=== PATIENT | female | born 1935 | race Caucasian/White ===

== ENCOUNTER 2024-04-06 21:35 | Inpatient (IN) | payer MEDICARE ==
[2024-04-06 22:40] LABS: #Basophils 0.04 10x3/uL (0.0-0.2); #Eosinophils 0.03 10x3/uL (0.0-0.5); #Monocytes 0.62 10x3/uL (0.0-1.1); #Neutrophils 7.62 10x3/uL (1.5-8.4); %Basophils 0.4 % (0.0-2.0); %Eosinophils 0.3 % (0.0-6.0); %Lymphocytes 10.7 % (18.0-47.0); %Monocytes 6.5 % (0.0-10.0); %Neutrophils 80.4 % (40.0-75.0); Hematocrit 24.5 % (34.9-44.5); Hemoglobin 7.9 g/dL (12.0-15.5); Mean Corpuscular HGB CONC 32.2 g/dL (32.0-36.0); Mean Corpuscular Hemoglobin 29.4 pg (27.0-33.0); Mean Corpuscular Volume 91.1 fL (81.6-98.3); Platelet Count 196 10x3/uL (150-450); RBC Distribution Width 18.1 % (11.5-14.5); Red Blood Cell (RBC) Count 2.69 10x6/uL (3.90-5.03); White Blood Cell (WBC) Count 9.48 10x3/uL (3.5-10.5)
[2024-04-06 22:54] LABS: ALT (SGPT) 64 U/L (8-55); AST (SGOT) 45 U/L (5-34); Albumin 3.4 g/dL (3.4-4.8); Alkaline Phosphatase 57 U/L (40-110); Anion Gap 13 mmol/L (10-20); BUN (Urea Nitrogen) 41 mg/dL (9.8-20.1); Bilirubin, Total 0.4 mg/dL (0.2-1.2); Calc. Creatinine Clearance 0 mL/min (70-130); Calcium 8.7 mg/dL (7.8-10.44); Carbon Dioxide 21 mmol/L (23-31); Chloride 108 mmol/L (98-107); Estimated GFR 66; Globulin 3.1 g/dL (2.4-3.5); Glucose 135 mg/dL (83-110); Potassium 3.7 mmol/L (3.5-5.1); Protein, Total 6.5 g/dL (5.8-8.1); Sodium 138 mmol/L (136-145)
[2024-04-06 23:02] LABS: INR-International Normal Ratio 1.1; Prothrombin Time 11.6 sec (9.5-12.1)
[2024-04-06] MEDS ORDERED: traMADol HCl 50 MG TAB PO PRN (23:41)
[2024-04-06] MEDS ORDERED: Acetaminophen 325 MG TAB PO PRN (23:41)
[2024-04-06] MEDS ORDERED: Ondansetron PF 4 MG/2 ML Vial IVP PRN (23:41)
[2024-04-07 01:13] VITALS: BMI 16.7
[2024-04-07 04:18] LABS: #Basophils 0.03 10x3/uL (0.0-0.2); #Eosinophils 0.05 10x3/uL (0.0-0.5); #Monocytes 0.57 10x3/uL (0.0-1.1); #Neutrophils 4.64 10x3/uL (1.5-8.4); %Basophils 0.5 % (0.0-2.0); %Eosinophils 0.8 % (0.0-6.0); %Lymphocytes 15.1 % (18.0-47.0); %Monocytes 9.1 % (0.0-10.0); %Neutrophils 73.7 % (40.0-75.0); Hematocrit 20.4 % (34.9-44.5); Hemoglobin 6.8 g/dL (12.0-15.5); Mean Corpuscular HGB CONC 33.3 g/dL (32.0-36.0); Mean Corpuscular Volume 89.9 fL (81.6-98.3); Platelet Count 178 10x3/uL (150-450); RBC Distribution Width 18.2 % (11.5-14.5); Red Blood Cell (RBC) Count 2.27 10x6/uL (3.90-5.03); White Blood Cell (WBC) Count 6.29 10x3/uL (3.5-10.5)
[2024-04-07 04:36] LABS: Anion Gap 13 mmol/L (10-20); BUN (Urea Nitrogen) 31 mg/dL (9.8-20.1); Calc. Creatinine Clearance 41 mL/min (70-130); Calcium 8.3 mg/dL (7.8-10.44); Carbon Dioxide 21 mmol/L (23-31); Chloride 110 mmol/L (98-107); Estimated GFR 84; Glucose 103 mg/dL (83-110); Potassium 3.7 mmol/L (3.5-5.1); Sodium 140 mmol/L (136-145)
[2024-04-07 05:38] LABS: Hemoglobin 6.5 g/dL (12.0-15.5)
[2024-04-07] MEDS: FLU (Fluad Triv) TS24-25 (65UP)/MF59C/PF 45 MCG/0.5 ML Syringe IM ONE (05:42)
[2024-04-07] MEDS ORDERED: Losartan 25 MG TAB PO SCH (09:00)
[2024-04-07] MEDS: Lactated Ringer's 1,000 ML IV SCH (09:14)
[2024-04-07] MEDS: Atorvastatin Calcium 40 MG TAB PO SCH (09:14)
[2024-04-07] MEDS: Pantoprazole 40 MG VIAL IVP SCH (09:14)
[2024-04-07] MEDS: Metoprolol Tartrate 50 MG TAB PO SCH (09:14)
[2024-04-07] MEDS: Amiodarone 200 MG TAB PO SCH (09:15)
[2024-04-07 09:59] VITALS: BMI 16.7
[2024-04-07] MEDS ORDERED: Pantoprazole 80 MG, Admixture Fee 1 EACH in Sodium Chloride 0.9% 100 ML IVPB SCH (10:00)
[2024-04-07 13:33] VITALS: BP 117/57; TEMP 98.5
== END 2024-04-07 13:30 | disposition home or self-care (01) | DRG 378 ==
LOC: CSHERS 21:35 → CSHTELE 23:45
PROVIDERS: ADMIT Internal Medicine; ATTEND Internal Medicine
PROC: 30233N1 Transfusion of Nonautologous Red Blood Cells into Peripheral Vein, Percutaneous Approach (ICD-10-PCS; principal; 2024-04-07)
DX: K92.2 Gastrointestinal hemorrhage, unspecified (principal); D62 Acute posthemorrhagic anemia; E44.0 Moderate protein-calorie malnutrition; Z68.1 Body mass index [BMI] 19.9 or less, adult; I48.91 Unspecified atrial fibrillation; I10 Essential (primary) hypertension; E78.5 Hyperlipidemia, unspecified; I25.10 Atherosclerotic heart disease of native coronary artery without angina pectoris; K21.9 Gastro-esophageal reflux disease without esophagitis; M19.90 Unspecified osteoarthritis, unspecified site; H40.9 Unspecified glaucoma; Z92.3 Personal history of irradiation; Z86.73 Personal history of transient ischemic attack (TIA), and cerebral infarction without residual deficits; Z85.3 Personal history of malignant neoplasm of breast; Z98.42 Cataract extraction status, left eye; Z98.41 Cataract extraction status, right eye
CPT/HCPCS: 36430; 80048; 80053; 85025; 85610; 86850; 86900; 86901; 99283; J2470; J7120; P9016

== ENCOUNTER 2025-02-20 10:23 | Emergency (ER) | payer MEDICARE ==
[2025-02-20] MEDS ORDERED: dilTIAZem 25 MG/5 ML VIAL ONE (11:32)
[2025-02-20 11:45] LABS: #Basophils 0.04 10x3/uL (0.0-0.2); #Eosinophils 0.05 10x3/uL (0.0-0.5); #Monocytes 0.46 10x3/uL (0.0-1.1); #Neutrophils 3.30 10x3/uL (1.5-8.4); %Basophils 0.8 % (0.0-2.0); %Eosinophils 1.0 % (0.0-6.0); %Lymphocytes 21.7 % (18.0-47.0); %Monocytes 9.3 % (0.0-10.0); %Neutrophils 66.8 % (40.0-75.0); Hematocrit 32.6 % (34.9-44.5); Hemoglobin 10.9 g/dL (12.0-15.5); Mean Corpuscular Hemoglobin 29.1 pg (27.0-33.0); Mean Corpuscular Volume 87.2 fL (81.6-98.3); Platelet Count 241 10x3/uL (150-450); Red Blood Cell (RBC) Count 3.74 10x6/uL (3.90-5.03); White Blood Cell (WBC) Count 4.94 10x3/uL (3.5-10.5)
[2025-02-20 12:02] LABS: ALT (SGPT) 17 U/L (Less than 34); AST (SGOT) 26 U/L (11-34); Albumin 3.6 g/dL (3.1-4.5); Alkaline Phosphatase 69 U/L (40-110); Anion Gap 14 mmol/L (10-20); BUN (Urea Nitrogen) 36 mg/dL (9.8-20.1); Bilirubin, Total 0.5 mg/dL (0.3-1.2); Calc. Creatinine Clearance 0 mL/min (70-130); Calcium 9.2 mg/dL (7.8-10.44); Carbon Dioxide 22 mmol/L (23-31); Chloride 109 mmol/L (98-107); Globulin 3.1 g/dL (2.4-3.5); Glucose 123 mg/dL (83-110); Magnesium 2.1 mg/dL (1.6-2.6); Potassium 4.3 mmol/L (3.5-5.1); Sodium 141 mmol/L (136-145)
[2025-02-20 12:10] LABS: Troponin I 0.252 ng/mL (< 0.028)
[2025-02-20 13:38] LABS: Glucose, Urine (Dipstick) Normal (Negative); Leukocyte Negative (Negative); Protein, Urine (Dipstick) 30 mg/dl (Neg-Trace); Specific Gravity, Urine 1.020 (1.005-1.030)
[2025-02-20 13:46] LABS: Bacteria/HPF 1+ HPF (None Seen); CAUTI Indications for Culture Pelvic or flank pain; RBC/HPF 0-3 HPF (0-3); WBC/HPF 0-3 HPF (0-3)
[2025-02-20 13:47] LABS: Urine Culture Reflex No No
== END 2025-02-20 14:42 | disposition home or self-care (01) ==
LOC: CSHERS 10:23
DX: I48.91 Unspecified atrial fibrillation (principal); I10 Essential (primary) hypertension; Z86.73 Personal history of transient ischemic attack (TIA), and cerebral infarction without residual deficits
CPT/HCPCS: 71045; 80053; 81001; 83735; 83880; 84484; 85025; 87428; 93005; 96374

== ENCOUNTER 2025-02-21 10:25 | Inpatient (IN) | payer MEDICARE ==
[2025-02-21 10:56] LABS: #Basophils 0.06 10x3/uL (0.0-0.2); #Eosinophils 0.06 10x3/uL (0.0-0.5); #Monocytes 0.63 10x3/uL (0.0-1.1); #Neutrophils 4.39 10x3/uL (1.5-8.4); %Basophils 0.9 % (0.0-2.0); %Eosinophils 0.9 % (0.0-6.0); %Lymphocytes 18.7 % (18.0-47.0); %Monocytes 9.9 % (0.0-10.0); %Neutrophils 69.1 % (40.0-75.0); Hematocrit 35.6 % (34.9-44.5); Hemoglobin 11.8 g/dL (12.0-15.5); Mean Corpuscular Hemoglobin 29.2 pg (27.0-33.0); Mean Corpuscular Volume 88.1 fL (81.6-98.3); Platelet Count 267 10x3/uL (150-450); Red Blood Cell (RBC) Count 4.04 10x6/uL (3.90-5.03); White Blood Cell (WBC) Count 6.36 10x3/uL (3.5-10.5)
[2025-02-21] MEDS ORDERED: dilTIAZem 25 MG/5 ML VIAL ONE (10:56)
[2025-02-21] MEDS ORDERED: Amiodarone 200 MG TAB ONE (10:56)
[2025-02-21 11:04] LABS: ALT (SGPT) 20 U/L (Less than 34); AST (SGOT) 32 U/L (11-34); Albumin 3.8 g/dL (3.1-4.5); Alkaline Phosphatase 79 U/L (40-110); Anion Gap 15 mmol/L (10-20); BUN (Urea Nitrogen) 35 mg/dL (9.8-20.1); Bilirubin, Total 0.5 mg/dL (0.3-1.2); Calc. Creatinine Clearance 0 mL/min (70-130); Calcium 9.0 mg/dL (7.8-10.44); Carbon Dioxide 20 mmol/L (23-31); Chloride 109 mmol/L (98-107); Globulin 3.2 g/dL (2.4-3.5); Glucose 126 mg/dL (83-110); Magnesium 2.2 mg/dL (1.6-2.6); Potassium 4.4 mmol/L (3.5-5.1); Sodium 140 mmol/L (136-145)
[2025-02-21 11:09] LABS: Troponin I 0.177 ng/mL (< 0.028)
[2025-02-21] MEDS ORDERED: Senokot S 8.6-50 MG TAB PO PRN (13:44)
[2025-02-21] MEDS ORDERED: Melatonin 3 MG TAB PO PRN (13:44)
[2025-02-21] MEDS ORDERED: Acetaminophen 325 MG TAB PO PRN (13:44)
[2025-02-21 14:52] VITALS: BMI 17.3
[2025-02-21 18:57] LABS: Troponin I 0.145 ng/mL (< 0.028)
[2025-02-21] MEDS: Amiodarone 200 MG TAB PO SCH (20:39)
[2025-02-22 00:28] LABS: Troponin I 0.133 ng/mL (< 0.028)
[2025-02-22 05:05] LABS: #Basophils 0.05 10x3/uL (0.0-0.2); #Eosinophils 0.06 10x3/uL (0.0-0.5); #Monocytes 0.67 10x3/uL (0.0-1.1); #Neutrophils 6.07 10x3/uL (1.5-8.4); %Basophils 0.6 % (0.0-2.0); %Eosinophils 0.8 % (0.0-6.0); %Lymphocytes 11.3 % (18.0-47.0); %Monocytes 8.6 % (0.0-10.0); %Neutrophils 77.8 % (40.0-75.0); Hematocrit 33.1 % (34.9-44.5); Hemoglobin 10.9 g/dL (12.0-15.5); Mean Corpuscular Hemoglobin 28.5 pg (27.0-33.0); Mean Corpuscular Volume 86.6 fL (81.6-98.3); Platelet Count 251 10x3/uL (150-450); Red Blood Cell (RBC) Count 3.82 10x6/uL (3.90-5.03); White Blood Cell (WBC) Count 7.80 10x3/uL (3.5-10.5)
[2025-02-22 05:19] LABS: Anion Gap 15 mmol/L (10-20); BUN (Urea Nitrogen) 27 mg/dL (9.8-20.1); Calc. Creatinine Clearance 40 mL/min (70-130); Calcium 8.6 mg/dL (7.8-10.44); Carbon Dioxide 20 mmol/L (23-31); Chloride 106 mmol/L (98-107); Glucose 127 mg/dL (83-110); Potassium 3.5 mmol/L (3.5-5.1); Sodium 137 mmol/L (136-145)
[2025-02-22] MEDS: Aspirin 81 mg Enteric Coated Tablet PO SCH (11:24)
[2025-02-22] MEDS: Metoprolol Succinate XL 50 MG ER.TAB PO SCH (12:22)
[2025-02-22 20:03] LABS: T4 7.91 ug/dL (4.87-11.72)
[2025-02-22] MEDS: FLU (Fluad Triv) 25-26 (65UP)PF 45 MCG/0.5 ML Syringe IM ONE (20:10)
[2025-02-22] MEDS: Famotidine 20 MG TAB PO SCH (21:04)
[2025-02-23 05:06] LABS: #Basophils 0.03 10x3/uL (0.0-0.2); #Eosinophils 0.09 10x3/uL (0.0-0.5); #Monocytes 1.01 10x3/uL (0.0-1.1); #Neutrophils 6.21 10x3/uL (1.5-8.4); %Basophils 0.3 % (0.0-2.0); %Eosinophils 1.0 % (0.0-6.0); %Lymphocytes 15.6 % (18.0-47.0); %Monocytes 11.5 % (0.0-10.0); %Neutrophils 71.0 % (40.0-75.0); Hematocrit 33.4 % (34.9-44.5); Hemoglobin 11.2 g/dL (12.0-15.5); Mean Corpuscular Hemoglobin 29.1 pg (27.0-33.0); Mean Corpuscular Volume 86.8 fL (81.6-98.3); Platelet Count 257 10x3/uL (150-450); Red Blood Cell (RBC) Count 3.85 10x6/uL (3.90-5.03); White Blood Cell (WBC) Count 8.76 10x3/uL (3.5-10.5)
[2025-02-23 05:18] LABS: Anion Gap 12 mmol/L (10-20); BUN (Urea Nitrogen) 29 mg/dL (9.8-20.1); Calc. Creatinine Clearance 31 mL/min (70-130); Calcium 8.8 mg/dL (7.8-10.44); Carbon Dioxide 21 mmol/L (23-31); Chloride 107 mmol/L (98-107); Glucose 113 mg/dL (83-110); Potassium 4.4 mmol/L (3.5-5.1); Sodium 136 mmol/L (136-145)
[2025-02-23] MEDS ORDERED: Aspirin 81 mg Enteric Coated Tablet PO SCH (09:00)
[2025-02-23] MEDS: Famotidine 20 MG TAB PO SCH (20:17)
[2025-02-24 07:36] LABS: #Basophils 0.06 10x3/uL (0.0-0.2); #Eosinophils 0.15 10x3/uL (0.0-0.5); #Monocytes 1.11 10x3/uL (0.0-1.1); #Neutrophils 7.58 10x3/uL (1.5-8.4); %Basophils 0.6 % (0.0-2.0); %Eosinophils 1.4 % (0.0-6.0); %Lymphocytes 13.6 % (18.0-47.0); %Monocytes 10.7 % (0.0-10.0); %Neutrophils 72.8 % (40.0-75.0); Hematocrit 34.9 % (34.9-44.5); Hemoglobin 11.3 g/dL (12.0-15.5); Mean Corpuscular Hemoglobin 29.0 pg (27.0-33.0); Mean Corpuscular Volume 89.7 fL (81.6-98.3); Platelet Count 292 10x3/uL (150-450); Red Blood Cell (RBC) Count 3.89 10x6/uL (3.90-5.03); White Blood Cell (WBC) Count 10.40 10x3/uL (3.5-10.5)
[2025-02-24 08:06] LABS: Anion Gap 13 mmol/L (10-20); BUN (Urea Nitrogen) 32 mg/dL (9.8-20.1); Calc. Creatinine Clearance 29 mL/min (70-130); Calcium 9.3 mg/dL (7.8-10.44); Carbon Dioxide 22 mmol/L (23-31); Chloride 105 mmol/L (98-107); Glucose 138 mg/dL (83-110); Potassium 4.1 mmol/L (3.5-5.1); Sodium 136 mmol/L (136-145)
[2025-02-24] MEDS: Losartan 25 MG TAB PO SCH (12:42)
[2025-02-24] MEDS: Bacitracin 1 PK TOP PRN (16:13)
[2025-02-25 06:03] VITALS: TEMP 98
[2025-02-25 06:19] LABS: #Basophils 0.04 10x3/uL (0.0-0.2); #Eosinophils 0.09 10x3/uL (0.0-0.5); #Monocytes 0.89 10x3/uL (0.0-1.1); #Neutrophils 6.89 10x3/uL (1.5-8.4); %Basophils 0.4 % (0.0-2.0); %Eosinophils 1.0 % (0.0-6.0); %Lymphocytes 11.4 % (18.0-47.0); %Monocytes 9.9 % (0.0-10.0); %Neutrophils 76.7 % (40.0-75.0); Hematocrit 34.5 % (34.9-44.5); Hemoglobin 11.2 g/dL (12.0-15.5); Mean Corpuscular Hemoglobin 28.6 pg (27.0-33.0); Mean Corpuscular Volume 88.2 fL (81.6-98.3); Platelet Count 282 10x3/uL (150-450); Red Blood Cell (RBC) Count 3.91 10x6/uL (3.90-5.03); White Blood Cell (WBC) Count 8.98 10x3/uL (3.5-10.5)
[2025-02-25 06:37] LABS: Anion Gap 15 mmol/L (10-20); BUN (Urea Nitrogen) 31 mg/dL (9.8-20.1); Calc. Creatinine Clearance 32 mL/min (70-130); Calcium 9.1 mg/dL (7.8-10.44); Carbon Dioxide 21 mmol/L (23-31); Chloride 107 mmol/L (98-107); Glucose 117 mg/dL (83-110); Potassium 3.9 mmol/L (3.5-5.1); Sodium 139 mmol/L (136-145)
[2025-02-25] MEDS: Losartan 25 MG TAB PO SCH ×2 (09:14→11:21)
[2025-02-25 12:23] VITALS: BP 139/73
[2025-02-26] MEDS ORDERED: Losartan 50 MG TAB PO SCH (09:00)
== END 2025-02-25 15:30 | disposition home health service (06) | DRG 281 ==
LOC: CSHERS 10:25 → CSHTELE 13:09
PROVIDERS: ADMIT Internal Medicine; ATTEND Hospitalist
DX: I48.0 Paroxysmal atrial fibrillation (principal); I50.42 Chronic combined systolic (congestive) and diastolic (congestive) heart failure; I21.4 Non-ST elevation (NSTEMI) myocardial infarction; K92.2 Gastrointestinal hemorrhage, unspecified; Z98.890 Other specified postprocedural states; Z95.1 Presence of aortocoronary bypass graft; Z86.73 Personal history of transient ischemic attack (TIA), and cerebral infarction without residual deficits; Z88.8 Allergy status to other drugs, medicaments and biological substances; K21.9 Gastro-esophageal reflux disease without esophagitis; D64.9 Anemia, unspecified; M19.90 Unspecified osteoarthritis, unspecified site; Z85.3 Personal history of malignant neoplasm of breast; Z92.3 Personal history of irradiation; Z79.899 Other long term (current) drug therapy; I11.0 Hypertensive heart disease with heart failure; E78.00 Pure hypercholesterolemia, unspecified; I21.A1 Myocardial infarction type 2; I25.118 Atherosclerotic heart disease of native coronary artery with other forms of angina pectoris
CPT/HCPCS: 36415; 80048; 80053; 83735; 83880; 84436; 84443; 84484; 85025; 93005; 93010; 93306; 94762; 96374

== ENCOUNTER 2025-03-04 11:39 | Emergency (ER) | payer MEDICARE | END 2025-03-04 13:31 | disposition home or self-care (01) | LOC: CSHERS 11:39 | DX: S60.511A Abrasion of right hand, initial encounter (principal); S51.812D Laceration without foreign body of left forearm, subsequent encounter; I10 Essential (primary) hypertension; E78.5 Hyperlipidemia, unspecified; I48.91 Unspecified atrial fibrillation; Z86.73 Personal history of transient ischemic attack (TIA), and cerebral infarction without residual deficits; W54.8XXA Other contact with dog, initial encounter | CPT/HCPCS: 99282 ==